=== PATIENT | female | born 1985 | race Caucasian/White ===

== ENCOUNTER 2017-02-10 17:16 | Emergency (ER) | payer SELFPAY ==
--- NOTE | 2017-02-10 17:33 | ER Document Report ---
ED Medical Screen (RME) - General Chief Complaint: Skin Problem Stated Complaint: LEFT FOOT/HEEL PAIN Time Seen by Provider: 02/10/17 17:30 Notes: 31-year-old female patient with pain in the left heel for a few days. She has very thick callus skin on her heels, and on the left heel it is cracked and appears to be getting infected. I have greeted and performed a rapid initial assessment of this patient. A comprehensive ED assessment and evaluation of the patient, analysis of test results and completion of the medical decision making process will be conducted by additional ED providers. TRAVEL OUTSIDE OF THE [place] IN LAST 30 DAYS: No - Related Data Allergies/Adverse Reactions: No Known Allergies Allergy (Verified 02/10/17 17:18) Home Medications: Current Home Medications Melatonin 3 mg PO QHS 02/10/17 [History] Physical Exam - Vital signs Vitals: Temp Pulse Resp BP Pulse Ox 98.7 F 112 H 20 129/98 H 93 02/10/17 17:23 02/10/17 17:23 02/10/17 17:23 02/10/17 17:23 02/10/17 17:23 Course - Vital Signs Vital signs: Temp Pulse Resp BP Pulse Ox 98.7 F 112 H 20 129/98 H 93 02/10/17 17:23 02/10/17 17:23 02/10/17 17:23 02/10/17 17:23 02/10/17 17:23
[2017-02-10 17:56] LABS: ABSOLUTE BASOPHILS # (AUTO) 0.1 10^3/uL (0.0-0.2); ABSOLUTE EOSINOPHILS # (AUTO) 0.3 10^3/uL (0.0-0.6); ABSOLUTE LYMPHOCYTES (AUTO) 2.5 10^3/uL (0.5-4.7); ABSOLUTE MONOCYTES (AUTO) 0.6 10^3/uL (0.1-1.4); ABSOLUTE NEUT (AUTO) 5.8 10^3/uL (1.7-8.2); BASOPHILS % (AUTO) 0.6 % (0-2); EOSINOPHILS % (AUTO) 3.2 % (0-6); HEMATOCRIT 39.9 % (36.0-47.0); HEMOGLOBIN 13.6 g/dL (12.0-15.5); HGB HCT DIFFERENCE 0.9; LYMPHOCYTES % (AUTO) 26.7 % (13-45); MEAN CORPUSCULAR HEMOGLOBIN 28.7 pg (27.0-33.4); MEAN CORPUSCULAR HGB CONC 34.1 g/dL (32.0-36.0); MEAN CORPUSCULAR VOLUME 84 fl (80-97); MONOCYTES % (AUTO) 6.1 % (3-13); RED BLOOD COUNT 4.74 10^6/uL (3.72-5.28); RED CELL DISTRIBUTION WIDTH 13.5 % (11.5-14.0); SEGMENTED NEUTROPHILS % (AUTO) 63.4 % (42-78); WHITE BLOOD COUNT 9.2 10^3/uL (4.0-10.5)
[2017-02-10 18:13] LABS: ALANINE AMINOTRANSFERASE 31 U/L (9-52); ALBUMIN 4.5 g/dL (3.5-5.0); ALKALINE PHOSPHATASE 95 U/L (38-126); ANION GAP 15 (5-19); ASPARTATE AMINO TRANSFERASE 21 U/L (14-36); BILIRUBIN,DIRECT 0.1 mg/dL (0.0-0.4); BILIRUBIN,TOTAL 0.1 mg/dL (0.2-1.3); BLOOD UREA NITROGEN 15 mg/dL (7-20); CALCIUM 9.9 mg/dL (8.4-10.2); CARBON DIOXIDE 23 mmol/L (22-30); CHLORIDE 107 mmol/L (98-107); GLUCOSE 116 mg/dL (75-110); POTASSIUM 4.3 mmol/L (3.6-5.0); SODIUM 144.8 mmol/L (137-145); TOTAL PROTEIN 7.8 g/dL (6.3-8.2)
--- NOTE | 2017-02-10 18:31 | ER Document Report ---
HPI - HPI Pain Level: 1 Notes: Patient is a 31-year-old female with a history of cerebral palsy and autism who presents ED with mother complaining of left heel pain times a couple weeks. Mother has not noticed any abscess, drainage, streaks to the area. She still ambulating without any difficulties. Denies any injury. They have not given her anything for her symptoms currently. She denies any other significant medical history or drug allergies. Denies any headache, fever, neck pain, URI, sore throat, chest pain, palpitations, syncope, cough, shortness of breath, wheeze, dyspnea, abdominal pain, nausea/vomiting/diarrhea, urinary retention, dysuria, hematuria, loss of control of bowel or bladder, numbness/tingling, muscle paralysis/weakness, or rash. - ROS Notes: REVIEW OF SYSTEMS: CONSTITUTIONAL : Denies fever, chills, or sweats. Denies recent illness. EENT: Denies eye, ear, throat, or mouth pain or symptoms. Denies nasal or sinus congestion or discharge. Denies throat, tongue, or mouth swelling or difficulty swallowing. CARDIOVASCULAR: Denies chest pain. Denies palpitations or racing or irregular heart beat. Denies ankle edema. RESPIRATORY: Denies cough, cold, or chest congestion. Denies shortness of breath, difficulty breathing, or wheezing. GASTROINTESTINAL: Denies abdominal pain or distention. Denies nausea, vomiting , or diarrhea. Denies blood in vomitus, stools, or per rectum. Denies black, tarry stools. Denies constipation. GENITOURINARY: Denies difficulty urinating, painful urination, burning, frequency, blood in urine, or discharge. MUSCULOSKELETAL: see hpi SKIN: see hpi NEUROLOGICAL: Denies dizziness or lightheadedness. Denies headache. Denies weakness or paralysis or loss of use of either side. Denies problems with gait or speech. Denies sensory loss, numbness, or tingling. Denies seizures. ALL OTHER SYSTEMS REVIEWED AND NEGATIVE. Dictation was performed using [employer] voice recognition software Past Medical History - Social History Smoking Status: Never Smoker Chew tobacco use (# tins/day): No Frequency of alcohol use: None Drug Abuse: None Family History: Reviewed & Not Pertinent Patient has suicidal ideation: No Patient has homicidal ideation: No Renal/ Medical History: Denies: Hx Peritoneal Dialysis Vertical Provider Document - CONSTITUTIONAL Agree With Documented VS: Yes Notes: PHYSICAL EXAMINATION: GENERAL: Well-appearing, well-nourished and in no acute distress. A&Ox4 LUNGS: Breath sounds clear to auscultation bilaterally and equal. No wheezes rales or rhonchi. HEART: Regular rate and rhythm without murmurs, rubs, gallops. Musculoskeletal: Lt foot: FROM to passive/active. Strength 5+/5. + callus formation to the heel with a fissure noted. No erythema, abscess, induration, tenderness, streaks, or discharge. N/V intact distal. Extremities: No cyanosis, clubbing, or edema b/l. Peripheral pulses 2+. Capillary refill less than 3 seconds. NEUROLOGICAL: Normal speech, normal gait. Normal sensory, motor exams PSYCH: Normal mood, normal affect. SKIN: see MSK exam. Warm, Dry, normal turgor, no rashes or lesions noted. - INFECTION CONTROL TRAVEL OUTSIDE OF THE [place] IN LAST 30 DAYS: No - RESPIRATORY O2 Sat by Pulse Oximetry: 93 Course - Re-evaluation Re-evalutation: 02/10/17 18:31 Patient is an afebrile, well-hydrated, 31-year-old female who presents the ED with fissuring of a heel callus on the left heel. Vitals are stable. PE is otherwise unremarkable for any neurovascular, eyes, obvious tendon/ligament rupture, obvious fracture or dislocation, sepsis, cellulitis. I will precautionary send her home with a prescription of Keflex to take twice a day for 5 days as they are working on improving the condition of the heel callus. Conservative measures otherwise for symptoms. Recheck with your PCM in 3-5 days. Return to the ED with any worsening/concerning symptoms otherwise as reviewed discharge. Mother and patient are in agreement. - Vital Signs Vital signs: Temp Pulse Resp BP Pulse Ox 98.7 F 112 H 20 129/98 H 93 02/10/17 17:23 02/10/17 17:23 02/10/17 17:23 02/10/17 17:23 02/10/17 17:23 - Laboratory Result Diagrams: 02/10/17 17:46 12 17:46 Laboratory results interpreted by me: 02/10/17 17:46 Glucose 116 H Total Bilirubin 0.1 L Discharge - Discharge Clinical Impression: fissure of heel callus, Heel callus Condition: Stable Disposition: HOME, SELF-CARE Additional Instructions: Rest, Ice, Compression, Elevation Wear supportive shoes Pumus stone Tylenol/ibuprofen as needed Light stretches daily Strength exercises as able Moist heat and massage may help F/u with your PCP in 3-5 days for a recheck Consider consult(s) with Orthopedics/physical therapy for ongoing/worsening symptoms Return to the ED with any worsening symptoms and/or development of fever, headache, chest pain, palpitations, syncope, shortness of breath, trouble breathing, abdominal pain, n/v/d, muscle weakness/paralysis, numbness/tingling, swelling, redness, or other worsening symptoms that are concerning to you. Prescriptions: Cephalexin Monohydrate [Keflex 500 mg Capsule] 500 mg PO BID #10 capsule Forms: Elevated Blood Pressure Referrals: [facility] [Provider Group] - Follow up as needed [facility] [Provider Group] - Follow up as needed
[2017-02-10 18:42] VITALS: BP 138/80
== END 2017-02-10 18:39 | disposition home or self-care (01) ==
LOC: ER 17:16
DX: L84 Corns and callosities (principal); R23.4 Changes in skin texture; M79.672 Pain in left foot; G80.9 Cerebral palsy, unspecified; F84.0 Autistic disorder
CPT/HCPCS: 36415; 80053; 85025; 99283